=== PATIENT | female | born 1940 | race Caucasian/White ===

== ENCOUNTER → 2017-01-18 | Outpatient (CLI) | payer MEDICARE ==
[~2017-01-18] MED LIST: COZAAR100 MG PO; ELIQUIS5 MG PO; KLOR-CON 1010 MEQ PO; LEVOTHYROXINE25 MCG PO; NAPROXEN500 MG PO; NORVASC 5 MG TAB5 MG PO; OMNICEF 300 MG300 MG PO; SIMVASTATIN20 MG PO; TESSALON PERLE100 MG PO; TRIAMTERENE-HC1 EACH PO; ZOVIRAX 200 MG200 MG PO
== END ==
LOC: KOH-I 14:11
DX: H93.8X1 Other specified disorders of right ear (principal); Z91.041 Radiographic dye allergy status; Z88.5 Allergy status to narcotic agent; Z91.040 Latex allergy status; Z91.013 Allergy to seafood
CPT/HCPCS: 70150

== ENCOUNTER 2021-11-25 04:15 | Emergency (ER) | payer MEDICARE ==
[2021-11-25] MEDS ORDERED: PREDNISONE 10 M10 MG PO (05:13)
== END 2021-11-25 05:25 | disposition home or self-care (01) ==
LOC: ER1 04:15
DX: G50.0 Trigeminal neuralgia (principal); Z88.5 Allergy status to narcotic agent; Z79.01 Long term (current) use of anticoagulants
CPT/HCPCS: 93005; 96372; 99283; J1100; J1885

== ENCOUNTER 2021-12-15 03:56 | Inpatient (IN) | payer MEDICARE ==
[~2021-12-15] VITALS: Ht 165.1 cm; Wt 58.5 kg
[~2021-12-15 03:56] MED LIST changes: +ELIQUIS2.5 MG PO; -ELIQUIS5 MG PO; +PREDNISONE 10 M10 MG PO
[2021-12-15 06:07] LABS: HEMOGLOBIN 12.3 gm/dl (12.3-15.3); RED BLOOD COUNT 4.08 M/UL (4.00-5.10); WHITE BLOOD COUNT 13.5 K/UL (4.5-11.0)
[2021-12-15 06:31] LABS: BUN/CREATININE RATIO 15 (0-10)
[2021-12-15] MEDS ORDERED: DONEPEZIL HCL10 MG PO (10:07)
[2021-12-15] MEDS ORDERED: NEURONTIN400 MG PO (10:07)
[2021-12-15] MEDS ORDERED: METOPROLOL TART25 MG PO (10:07)
[2021-12-15] MEDS ORDERED: HYDRALAZINE HCL50 MG PO (10:08)
[2021-12-15] MEDS ORDERED: TEGRETOL200 MG PO (10:09)
[2021-12-17 06:44] LABS: BUN/CREATININE RATIO 15 (0-10)
[2021-12-17] MEDS ORDERED: NEURONTIN400 MG PO (14:17)
[2021-12-17] MEDS ORDERED: TEGRETOL200 MG PO (14:17)
[2021-12-17] MEDS ORDERED: ROXICODONE TAB 55 MG PO (14:17)
[2021-12-17] MEDS ORDERED: ACETAMINOPHEN500 MG PO (14:17)
[2021-12-19 04:21] LABS: RED BLOOD COUNT 2.62 M/UL (4.00-5.10); WHITE BLOOD COUNT 5.4 K/UL (4.5-11.0)
[2021-12-19 04:29] LABS: BUN/CREATININE RATIO 20 (0-10)
[2021-12-19 04:48] LABS: HEMOGLOBIN 7.9 gm/dl (12.3-15.3)
[2021-12-19] MEDS ORDERED: ROXICODONE TAB 55 MG PO (12:16)
[2021-12-20 12:05] LABS: HEMOGLOBIN 8.4 gm/dl (12.3-15.3); RED BLOOD COUNT 2.77 M/UL (4.00-5.10); WHITE BLOOD COUNT 5.5 K/UL (4.5-11.0)
== END 2021-12-22 15:56 | DRG 480 ==
LOC: ER1 03:56 → M/S 05:33 → CDU 05:33 → M/S 08:22
PROVIDERS: Nurse Practitioner Family; Physician Assistant; ADMIT Internal Medicine
PROC: 3E03329 Introduction of Other Anti-infective into Peripheral Vein, Percutaneous Approach (ICD-10-PCS; principal; 2021-12-15)
PROC: 0HQ0XZZ Repair Scalp Skin, External Approach (ICD-10-PCS; 2021-12-15)
PROC: 0QS606Z Reposition Right Upper Femur with Intramedullary Internal Fixation Device, Open Approach (ICD-10-PCS; 2021-12-16)
DX: S72.141A Displaced intertrochanteric fracture of right femur, initial encounter for closed fracture (principal); J18.9 Pneumonia, unspecified organism; J96.01 Acute respiratory failure with hypoxia; J90 Pleural effusion, not elsewhere classified; Z20.822 Contact with and (suspected) exposure to COVID-19; I10 Essential (primary) hypertension; R53.81 Other malaise; I48.91 Unspecified atrial fibrillation; F03.90 Unspecified dementia, unspecified severity, without behavioral disturbance, psychotic disturbance, mood disturbance, and anxiety; G50.0 Trigeminal neuralgia; S01.01XA Laceration without foreign body of scalp, initial encounter; W01.0XXA Fall on same level from slipping, tripping and stumbling without subsequent striking against object, initial encounter; Z96.642 Presence of left artificial hip joint; S09.90XA Unspecified injury of head, initial encounter; Z86.73 Personal history of transient ischemic attack (TIA), and cerebral infarction without residual deficits; Y92.091 Bathroom in other non-institutional residence as the place of occurrence of the external cause; Z79.899 Other long term (current) drug therapy; Z90.49 Acquired absence of other specified parts of digestive tract; Z82.49 Family history of ischemic heart disease and other diseases of the circulatory system; Z88.5 Allergy status to narcotic agent; Z79.01 Long term (current) use of anticoagulants
CPT/HCPCS: 12002; 36415; 51702; 70450; 71045; 71250; 72125; 73502; 73552; 73562; 76000; 80048; 80053; 81001; 82550; 82553; 83874; 84484; 85018; 85025; 85027; 85610; 85730; 86850; 86900; 86901; 87086; 90471; 93005; 96374; 96375; 97110; 97110-GP-CQ; 97116; 97116-GP-CQ; 97162; 97166; 97530; 97530-GP-CQ; 99285; C1713; J0456; J0690; J1100; J2001; J2270; J2370; J2405; J2704; J2795; J3010; J7030; J7120; U0002

== ENCOUNTER → 2022-04-11 | Outpatient (CLI) | payer MEDICARE ==
[~2022-04-11] MED LIST changes: +ACETAMINOPHEN500 MG PO; +DONEPEZIL HCL10 MG PO; +HYDRALAZINE HCL50 MG PO; +METOPROLOL TART25 MG PO; +NEURONTIN400 MG PO; +ROXICODONE TAB 55 MG PO; +TEGRETOL200 MG PO
== END ==
LOC: RAD 11:45
DX: M17.0 Bilateral primary osteoarthritis of knee (principal)
CPT/HCPCS: 73560